=== PATIENT | male | born 1950 | race African-American/Black ===

== ENCOUNTER → 2016-12-17 | Outpatient (CLI) | payer OTHER, MEDICAID ==
[2015-07-23 14:32] VITALS: BP 154/78
[~2016-12-17] MED LIST: HYDR-971 PO; PHEN-318 PO; TAMS0.4C97 PO
--- NOTE | 2016-12-17 12:03 | RAD ---
Indication pain. AP lateral and coned view targeted to the lumbosacral junction were obtained. Note is made of a previous examination 11/14/2011. There is very minimal anterolisthesis of L5 relative to S1 and L4. There is disc space narrowing at L5-S1 with some associated vacuum disc phenomenon. Osteophytes are seen at multiple levels. Degenerative changes have progressed slightly relative to the previous exam. IMPRESSION: Degenerative changes. No acute finding seen. Degenerative changes have progressed somewhat relative to the previous exam
== END | disposition home or self-care (01) ==
LOC: RAD 09:37
PROVIDERS: ATTEND Family Medicine
DX: M54.16 Radiculopathy, lumbar region (principal)
CPT/HCPCS: 72100

== ENCOUNTER → 2017-02-19 | Outpatient (CLI) | payer OTHER, MEDICAID ==
[2017-02-19] MEDS: GADOBUTROL 7.5 MMOL/7.5 ML VIAL IV (09:59)
== END | disposition home or self-care (01) ==
LOC: KCIC MRI 08:56
DX: M51.16 Intervertebral disc disorders with radiculopathy, lumbar region (principal); M51.37 Other intervertebral disc degeneration, lumbosacral region; M43.16 Spondylolisthesis, lumbar region; M25.78 Osteophyte, vertebrae; M47.896 Other spondylosis, lumbar region; I10 Essential (primary) hypertension; F17.200 Nicotine dependence, unspecified, uncomplicated
CPT/HCPCS: 72158; A9585

== ENCOUNTER 2017-11-10 08:52 | Emergency (ER) | payer OTHER, MEDICAID ==
[~2017-11-10] VITALS: Ht 172.7 cm; Wt 59.0 kg
[~2017-11-10 08:52] MED LIST changes: +AMLO5TAB7 PO; +MIRA25TA PO; +TRIA1TAB2 PO
[2017-11-10 09:06] VITALS: BP 172/96
--- NOTE | 2017-11-10 09:14 | PHYS DOC ---
Past Medical History Past Medical History: Hypertension, Migraines Past Surgical History: Other Additional Past Surgical Histo: ABDOMINAL SURGERY Alcohol Use: None Drug Use: None Adult General Chief Complaint Chief Complaint: URINARY RETENTION HPI HPI Patient is a 67 year old male with history of hypertension, migraine headaches , urinary retention, who presents today complaining of urinary retention since yesterday at 6 PM. Patient states he had similar problem last year and had a Martin catheter placed in the Ed, he states he came to the ED and we removed the Martin catheter a couple days later. Patient states he never followed up with a urologist. Patient states the last time he was in no ED we did not do any workup for him. Is requesting workup to see what's wrong with him. Review of Systems Review of Systems Constitutional: Denies fever or chills [] Eyes: Denies change in visual acuity, redness, or eye pain [] HENT: Denies nasal congestion or sore throat [] Respiratory: Denies cough or shortness of breath [] Cardiovascular: No additional information not addressed in HPI [] GI: Denies abdominal pain, nausea, vomiting, bloody stools or diarrhea [] : Reports urinary retention. Denies dysuria or hematuria [] Musculoskeletal: Denies back pain or joint pain [] Integument: Denies rash or skin lesions [] Neurologic: Denies headache, focal weakness or sensory changes [] All other systems were reviewed and found to be within normal limits, except as documented in this note. Current Medications Current Medications Current Medications Medications (Trade) Dose Ordered Sig/[facility] Start Time Stop Time Status Last Admin Dose Admin Tamsulosin HCl (Flomax) 0.4 mg 1X ONCE 11/10/17 09:30 11/10/17 09:31 DC 11/10/17 09:34 0.4 MG Allergies Allergies Allergies Coded Allergies Type Severity Reaction Last Updated Verified No Known Drug Allergies 07/23/15 No Physical Exam Physical Exam Constitutional: Well developed, well nourished, no acute distress, non-toxic appearance. [] HENT: Normocephalic, atraumatic, bilateral external ears normal, oropharynx moist, no oral exudates, nose normal. [] Eyes: PERRLA, EOMI, conjunctiva normal, no discharge. [] Neck: Normal range of motion, no tenderness, supple, no stridor. [] Cardiovascular:Heart rate regular rhythm, no murmur [] Lungs & Thorax: Bilateral breath sounds clear to auscultation [] Abdomen: Bowel sounds normal, soft, no tenderness, no masses, no pulsatile masses. [] Bladder feels distended on palpation Skin: Warm, dry, no erythema, no rash. [] Back: No tenderness, no CVA tenderness. [] Extremities: No tenderness, no cyanosis, no clubbing, ROM intact, no edema. [] Neurologic: Alert and oriented X 3, normal motor function, normal sensory function, no focal deficits noted. [] Psychologic: Affect normal, judgement normal, mood normal. [] Current Patient Data Vital Signs Vital Signs Date Time Temp Pulse Resp B/P (MAP) Pulse Ox O2 Delivery O2 Flow Rate FiO2 11/10/17 09:06 98.0 80 18 172/96 (121) 100 Room Air 98.0 Lab Values Laboratory Tests Test 11/10/17 09:35 11/10/17 09:47 11/10/17 10:25 White Blood Count 5.5 x10^3/uL (4.0-11.0) Red Blood Count 5.25 x10^6/uL (4.30-5.70) Hemoglobin 15.1 g/dL (13.0-17.5) Hematocrit 44.6 % (39.0-53.0) Mean Corpuscular Volume 85 fL (79-100) Mean Corpuscular Hemoglobin 29 pg (25-35) Mean Corpuscular Hemoglobin Concent 34 g/dL (31-37) Red Cell Distribution Width 14.9 % (11.5-14.5) H Platelet Count 280 x10^3/uL (140-400) Neutrophils (%) (Auto) 73 % (31-73) Lymphocytes (%) (Auto) 20 % (24-48) L Monocytes (%) (Auto) 6 % (0-9) Eosinophils (%) (Auto) 1 % (0-3) Basophils (%) (Auto) 1 % (0-3) Neutrophils # (Auto) 4.0 x10^3uL (1.8-7.7) Lymphocytes # (Auto) 1.1 x10^3/uL (1.0-4.8) Monocytes # (Auto) 0.3 x10^3/uL (0.0-1.1) Eosinophils # (Auto) 0.0 x10^3/uL (0.0-0.7) Basophils # (Auto) 0.0 x10^3/uL (0.0-0.2) Urine Collection Type Unknown Urine Color Yellow Urine Clarity Clear Urine pH 6.5 Urine Specific [place] 1.020 Urine Protein Negative mg/dL (NEG-TRACE) Urine Glucose (UA) Negative mg/dL (NEG) Urine Ketones (Stick) Negative mg/dL (NEG) Urine Blood Negative (NEG) Urine Nitrite Negative (NEG) Urine Bilirubin Negative (NEG) Urine Urobilinogen Dipstick 0.2 mg/dL (0.2 mg/dL) Urine Leukocyte Esterase Negative (NEG) Urine RBC 0 /HPF (0-2) Urine WBC 0 /HPF (0-4) Urine Squamous Epithelial Cells Few /LPF Urine Bacteria 0 /HPF (0-FEW) Sodium Level 136 mmol/L (136-145) Potassium Level 3.8 mmol/L (3.5-5.1) Chloride Level 101 mmol/L (98-107) Carbon Dioxide Level 28 mmol/L (21-32) Anion Gap 7 (6-14) Blood Urea Nitrogen 11 mg/dL (8-26) Creatinine 0.9 mg/dL (0.7-1.3) Estimated GFR (Cockcroft-Gault) 101.5 BUN/Creatinine Ratio 12 (6-20) Glucose Level 125 mg/dL (70-99) H Calcium Level 9.0 mg/dL (8.5-10.1) Total Bilirubin 0.5 mg/dL (0.2-1.0) Aspartate Amino Transferase (AST) 18 U/L (15-37) Alanine Aminotransferase (ALT) 25 U/L (16-63) Alkaline Phosphatase 66 U/L (46-116) Total Protein 7.3 g/dL (6.4-8.2) Albumin 3.4 g/dL (3.4-5.0) Albumin/Globulin Ratio 0.9 (1.0-1.7) L Lipase 129 U/L (73-393) Laboratory Tests 11/10/17 09:35 Laboratory Tests 11/10/17 10:25 EKG EKG [] Radiology/Procedures Radiology/Procedures []PROCEDURE: CT ABDOMEN PELVIS WO CONTRAST CT abdomen and pelvis without contrast. HISTORY: Anuria, retention CT scan of the abdomen and pelvis was done without contrast. There are changes of chronic obstructive pulmonary disease in the lung bases. There is no infiltrate in the lung bases or pleural effusion. There is spondylolysis at L5 with slight spondylolisthesis and disc space narrowing at that level. There is a small cyst in the liver. No other liver lesion is noted. There is no calcified gallstone. Spleen and adrenal glands are normal. Pancreas is normal. There is no mass or hydronephrosis in the kidneys. There is no adenopathy or ascites. There is no bowel obstruction. There is a catheter in the bladder. The prostate is enlarged. There is no adenopathy noted. IMPRESSION: 1. Large prostate. 2. Catheter in the bladder. 3. No hydronephrosis in the kidneys. 4. Spondylolysis at L5 with mild spondylolisthesis. 6. No bowel obstruction or other acute finding. PQRS Compliance Statement: One or more of the following individualized dose reduction techniques were utilized for this examination: 1. Automated exposure control 2. Adjustment of the mA and/or kV according to patient size 3. Use of iterative reconstruction technique Electronically signed by: Tab Miller MD (11/10/2017 10:12 AM) [facility] DICTATED and SIGNED BY: TAB MILLER MD DATE: 11/10/17 1007 Course & Med Decision Making Course & Med Decision Making Pertinent Labs and Imaging studies reviewed. (See chart for details) This is a 67-year-old male patient presented to the ED today with urinary retention. Has history of urinary retention but never follows up with a urologist. He is requesting workup this time stating last time he was seen in the ED they did not do any workup for his condition. Last time he voided was 6 PM last night. Bladder is distended on physical exam. Martin was placed, 700 mL of urine output noted. Urine analysis is negative for infection, CBC CMP with no acute findings. CT noted for prostate enlargement. Patient was discharged on Flomax. Provided patient a urologist. Instructed him to follow-up with the urologist in the next 2 days. He was discharged with a Martin catheter and leg bag provided as well as night bag. Staff Physician Addendum: I was working in the ER during the course of this patient's visit. I was available for consultation as needed, but I was not directly involved in the care of this patient. Dragon Disclaimer Dragon Disclaimer This electronic medical record was generated, in whole or in part, using a voice recognition dictation system. Departure Departure Impression: Primary Impression: Urinary retention Additional Impression: Benign enlargement of prostate Disposition: HOME, SELF-CARE Condition: STABLE Referrals: MORE CAICEDO (PCP) NUNO WRIGHT MD Contact the office tomorrow morning and set up a follow-up appointment Patient Instructions: Benign Prostatic Hyperplasia, Martin Catheter Care, Adult , Urinary Retention, Acute, Male Additional Instructions: You were evaluated in the emergency room for urinary retention and noted to have enlarged prostate. You have a Martin catheter in place. Please contact the provided urologist tomorrow morning and set up a follow-up appointment with them as soon as possible. Come back to the ED at any point symptoms worsen. Scripts Tamsulosin Hcl (FLOMAX) 0.4 Mg Cap.er.24h 1 CAP PO DAILY, #90 CAP 0 Refills Prov: ANABEL MARQUES APRN 11/10/17 Problem Qualifiers Additional Impression: Benign enlargement of prostate Lower urinary tract symptom presence: symptoms present Lower urinary tract symptom detail: urinary retention Qualified Codes: N40.1 - Benign prostatic hyperplasia with lower urinary tract symptoms; R33.8 - Other retention of urine ANABEL MARQUES APRN Nov 10, 2017 09:14 LAUREN ERWIN MD Nov 10, 2017 15:45
[2017-11-10] MEDS ORDERED: TAMSULOSIN 0.4 MG CAP.ER.24H. PO ONE (09:30)
[2017-11-10 09:49] LABS: BASO % 1 % (0-3); EOS % 1 % (0-3); HEMATOCRIT 44.6 % (39.0-53.0); HEMOGLOBIN 15.1 g/dL (13.0-17.5); LYMPH # 1.1 x10^3/uL (1.0-4.8); LYMPH % 20 % (24-48); MEAN CORPUSCULAR HEMOGLOBIN 29 pg (25-35); MEAN CORPUSCULAR HGB CONC 34 g/dL (31-37); MEAN CORPUSCULAR VOLUME 85 fL (79-100); MONO # 0.3 x10^3/uL (0.0-1.1); MONO % 6 % (0-9); NEUT % 73 % (31-73); PLATELET COUNT 280 x10^3/uL (140-400); RED BLOOD COUNT 5.25 x10^6/uL (4.30-5.70); RED CELL DISTRIBUTION WIDTH 14.9 % (11.5-14.5); WHITE BLOOD COUNT 5.5 x10^3/uL (4.0-11.0)
--- NOTE | 2017-11-10 10:15 | RAD ---
CT abdomen and pelvis without contrast. HISTORY: Anuria, retention CT scan of the abdomen and pelvis was done without contrast. There are changes of chronic obstructive pulmonary disease in the lung bases. There is no infiltrate in the lung bases or pleural effusion. There is spondylolysis at L5 with slight spondylolisthesis and disc space narrowing at that level. There is a small cyst in the liver. No other liver lesion is noted. There is no calcified gallstone. Spleen and adrenal glands are normal. Pancreas is normal. There is no mass or hydronephrosis in the kidneys. There is no adenopathy or ascites. There is no bowel obstruction. There is a catheter in the bladder. The prostate is enlarged. There is no adenopathy noted. IMPRESSION: 1. Large prostate. 2. Catheter in the bladder. 3. No hydronephrosis in the kidneys. 4. Spondylolysis at L5 with mild spondylolisthesis. 6. No bowel obstruction or other acute finding. PQRS Compliance Statement: One or more of the following individualized dose reduction techniques were utilized for this examination: 1. Automated exposure control 2. Adjustment of the mA and/or kV according to patient size 3. Use of iterative reconstruction technique Electronically signed by: Tab Miller MD (11/10/2017 10:12 AM) [facility]
[2017-11-10 10:34] LABS: BACTERIA,URINE 0 /HPF (0-FEW); BILIRUBIN,URINE NEGATIVE (NEG); CLARITY,URINE CLEAR; COLOR,URINE YELLOW; NITRITE,URINE NEGATIVE (NEG); PH,URINE 6.5; PROTEIN,URINE NEGATIVE (NEG-TRACE); RBC,URINE 0 /HPF (0-2); SQUAMOUS EPITHELIAL CELL,UR FEW /LPF; UROBILINOGEN,URINE 0.2 mg/dL (0.2 mg/dL); WBC,URINE 0 /HPF (0-4)
[2017-11-10 10:54] LABS: ALBUMIN 3.4 g/dL (3.4-5.0); ALBUMIN/GLOBULIN RATIO 0.9 (1.0-1.7); CREATININE 0.9 mg/dL (0.7-1.3); GFR 101.5; POTASSIUM 3.8 mmol/L (3.5-5.1); TOTAL BILIRUBIN 0.5 mg/dL (0.2-1.0); TOTAL PROTEIN 7.3 g/dL (6.4-8.2)
[2017-11-10] MEDS ORDERED: TAMS0.4C97 PO (11:45)
== END 2017-11-10 11:36 | disposition home or self-care (01) ==
LOC: ER 08:52
DX: R33.9 Retention of urine, unspecified (principal); N40.0 Benign prostatic hyperplasia without lower urinary tract symptoms; I10 Essential (primary) hypertension; G43.909 Migraine, unspecified, not intractable, without status migrainosus; M43.16 Spondylolisthesis, lumbar region
CPT/HCPCS: 36415; 51702; 74176; 80053; 81001; 83690; 85025; 99285-25

== ENCOUNTER → 2018-11-19 | Day surgery (SDC) | payer OTHER, MEDICAID ==
[~2018-11-19] VITALS: Ht 175.3 cm; Wt 59.0 kg
[~2018-11-19] MED LIST changes: +ACETAMINOPHEN 325 MG TABLET. PO ONE; +ACETAMINOPHEN 500 MG TABLET PO ONE; +AMLO5TAB10 PO; -AMLO5TAB7 PO; +CIPROFLOXACIN 400MG PREMIX 200 ML IV PRN; +DEXAMETHASONE SOD PHOS 4 MG/ML VIAL ONE; +DULO60CA6 PO; +FINA5TAB PO; +HYDR-2765 PO; +HYDR-3164 PO; -HYDR-971 PO; +HYDROmorphone 2 MG/ML VIAL IV PRN; +IV RINGERS,LACTATED 1000ML 1,000 ML IV SCH; +LIDOCAINE 1% PF 2 ML VIAL. ID PRN; +LIDOCAINE 2% JELLY 6ML IN APPLICATOR. ONE; +LIDOCAINE 2% PF 5 ML VIAL. ONE; +MORPHINE SULFATE 2 MG/ML VIAL. IV PRN; +ONDANSETRON PF 4 MG/2 ML VIAL. IV PRN; +ONDANSETRON PF 4 MG/2 ML VIAL. ONE; +PHEN100T82 PO; +PHENYLEPHRINE in 0.9% NACL PF 1 MG/10 ML SYRINGE. IV ONE; +PROCHLORPERAZINE 10 MG/2 ML VIAL. IV PRN; +PROPOFOL 20 ML IV ONE; +SEVOFLURANE 61 TO 120 MINUTES. IH ONE; +ePHEDrine PF IN SALINE 50 MG/10 ML SYRINGE. IV ONE; +fentaNYL PF VIAL 100 MCG/2 ML VIAL IV PRN; +fentaNYL PF VIAL 100 MCG/2 ML VIAL ONE
--- NOTE | 2018-11-19 11:52 | DISCH ---
DISCHARGE INSTRUCTIONS Condition on Discharge Condition on Discharge: Stable Activity After Discharge Activity Instructions for Disc: Activity as tolerated Diet after Discharge Diet after Discharge: Regular Wound Incision Care Wound/Incision Care: Routine catheter care Contacting the DRDevon after DC Call your doctor for: Fever greater than 100 Follow-Up Follow up with: in 2 weeks Follow Up With: dc cath on saturdays am. 20ml balloon NUNO WRIGHT MD Nov 19, 2018 11:52
[2018-11-19 12:20] VITALS: BP 134/72
--- NOTE | 2018-11-19 13:23 | OP ---
DATE OF SURGERY: 11/19/2018 PREOPERATIVE DIAGNOSIS: Benign prostatic hypertrophy. POSTOPERATIVE DIAGNOSIS: Benign prostatic hypertrophy. PROCEDURE PERFORMED: Cysto with GreenLight for vaporization of the prostate. SURGEON: Elba Lipscomb MD ANESTHESIA: General. CONDITION: Stable. COMPLICATIONS: None. ESTIMATED BLOOD LOSS: 1 or 2 mL. FINDINGS: Obstructive lateral lobes. No significant median lobe. Both ureteral orifices and the verumontanum were seen at the end of the procedure, unharmed. DESCRIPTION OF PROCEDURE: The patient was taken back to the procedure room and placed under general anesthesia in a supine position per the protocol. He was prepped and draped in usual sterile fashion in dorsal lithotomy position. Timeout was performed. SCDs were attached. IV antibiotics were administered. A 23-American continuous flow scope was placed per urethra into the bladder. There was no evidence of anterior or posterior stricture disease. He had a large capacity bladder with several trabeculations. Ureteral orifice was seen away from the bladder neck. There is no significant median lobe. His lateral lobes were almost gets obstructed. A MoXy XPS laser fiber was obtained and was parked a few millimeters away from the bladder neck to avoid any bladder neck resection. The left lateral lobe was taken down first after limits of dissection was carried out both proximally and distally close to the verumontanum with care not to injure any of the above-mentioned structures. The lateral lobe was taken with continuous overlapping swipes with a MoXy XPS fiber with energy all the way to 180 h[place]. A wide open prostate fossa and the shape of a wine barrel was created, 129,000 joules were used. Pinpoint hemostasis was obtained as needed. Lidocaine jelly was used and a 20-American catheter with 20 mL balloon was placed into the bladder. Clear fluid urine return, irrigated several times with no blood clots. Tubing was attached with the leg bag. DISPOSITION: We will send home with pain medications and Pyridium. We will take out the catheter on Saturday morning. He will follow up with me in 2 weeks. ELBA LIPSCOMB MD DR: MAYELIN/elke JOB#: [id number] / [id number]
== END ==
LOC: SURG 09:21
PROVIDERS: ATTEND Urology
DX: N40.0 Benign prostatic hyperplasia without lower urinary tract symptoms (principal); I10 Essential (primary) hypertension; Z98.890 Other specified postprocedural states
CPT/HCPCS: 52648; J0171; J0744; J1100; J2001; J2370; J2405; J2704; J3010

== ENCOUNTER 2021-07-10 08:23 | Emergency (ER) | payer MEDICARE, MEDICAID ==
[~2021-07-10] VITALS: Ht 175.3 cm; Wt 65.0 kg
[~2021-07-10 08:23] MED LIST changes: -ACETAMINOPHEN 325 MG TABLET. PO ONE; -ACETAMINOPHEN 500 MG TABLET PO ONE; +AMLO-186 PO; -AMLO5TAB10 PO; -CIPROFLOXACIN 400MG PREMIX 200 ML IV PRN; -DEXAMETHASONE SOD PHOS 4 MG/ML VIAL ONE; -DULO60CA6 PO; +DULO60CA7 PO; -HYDROmorphone 2 MG/ML VIAL IV PRN; -IV RINGERS,LACTATED 1000ML 1,000 ML IV SCH; -LIDOCAINE 1% PF 2 ML VIAL. ID PRN; -LIDOCAINE 2% JELLY 6ML IN APPLICATOR. ONE; -LIDOCAINE 2% PF 5 ML VIAL. ONE; -MORPHINE SULFATE 2 MG/ML VIAL. IV PRN; -ONDANSETRON PF 4 MG/2 ML VIAL. IV PRN; -ONDANSETRON PF 4 MG/2 ML VIAL. ONE; -PHENYLEPHRINE in 0.9% NACL PF 1 MG/10 ML SYRINGE. IV ONE; -PROCHLORPERAZINE 10 MG/2 ML VIAL. IV PRN; -PROPOFOL 20 ML IV ONE; -SEVOFLURANE 61 TO 120 MINUTES. IH ONE; -ePHEDrine PF IN SALINE 50 MG/10 ML SYRINGE. IV ONE; -fentaNYL PF VIAL 100 MCG/2 ML VIAL IV PRN; -fentaNYL PF VIAL 100 MCG/2 ML VIAL ONE
[2021-07-10 09:04] LABS: BASO % 1 % (0-3); EOS # 0.2 x10^3/uL (0.0-0.7); EOS % 5 % (0-3); HEMATOCRIT 40.9 % (39.0-53.0); HEMOGLOBIN 13.4 g/dL (13.0-17.5); LYMPH # 2.1 x10^3/uL (1.0-4.8); LYMPH % 38 % (24-48); MEAN CORPUSCULAR HEMOGLOBIN 28 pg (25-35); MEAN CORPUSCULAR HGB CONC 33 g/dL (31-37); MEAN CORPUSCULAR VOLUME 86 fL (79-100); MONO # 0.6 x10^3/uL (0.0-1.1); MONO % 12 % (0-9); NEUT # 2.4 x10^3/uL (1.8-7.7); NEUT % 45 % (31-73); PLATELET COUNT 284 x10^3/uL (140-400); RED BLOOD COUNT 4.76 x10^6/uL (4.30-5.70); RED CELL DISTRIBUTION WIDTH 15.1 % (11.5-14.5); WHITE BLOOD COUNT 5.4 x10^3/uL (4.0-11.0)
[2021-07-10 09:12] LABS: CREATININE 1.2 mg/dL (0.7-1.3); GFR 72.2; POTASSIUM 3.1 mmol/L (3.5-5.1)
[2021-07-10 09:15] LABS: PROTHROMBIN TIME PATIENT 12.4 SEC (11.7-14.0)
[2021-07-10 09:18] LABS: ALBUMIN 3.6 g/dL (3.4-5.0); ALBUMIN/GLOBULIN RATIO 0.9 (1.0-1.7); TOTAL BILIRUBIN 0.5 mg/dL (0.2-1.0); TOTAL PROTEIN 7.5 g/dL (6.4-8.2)
[2021-07-10 09:30] LABS: FECAL OB PT POSITIVE (NEG)
[2021-07-10] MEDS ORDERED: MORPHINE SULFATE 4 MG/ML INJ. ONE (09:37)
[2021-07-10] MEDS ORDERED: MORPHINE SULFATE 4 MG/ML INJ. IV PRN (09:45)
--- NOTE | 2021-07-10 09:49 | PHYS DOC ---
Past Medical History Past Medical History: Hypertension Additional Past Medical Histor: BACK PAIN FROM DISC PROBLEM Past Surgical History: Other Additional Past Surgical Histo: ABDOMINAL SURGERY - UNKNOWN Smoking Status: Former Smoker Alcohol Use: None Drug Use: None General Adult EDM: Chief Complaint: BLOODY STOOL HPI: HPI: Patient is a 70 year old male who presents to the emergency department today with concerns for blood in his stools. Patient states that he had a bowel movement this morning and noticed a streak of blood on the fecal matter. He also has some blood when he wipes. He states this was the first and only time he has had blood in his stools. He does not take any antiplatelet or anticoagulant medications. He denies any chest pain or shortness of breath. He denies any feelings of syncope or near syncope. He denies any other issues with bleeding. Review of Systems: Review of Systems: Constitutional: Denies fever or chills. [] Eyes: Denies change in visual acuity. [] HENT: Denies nasal congestion or sore throat. [] Respiratory: Denies cough or shortness of breath. [] Cardiovascular: Denies chest pain or edema. [] GI: Denies abdominal pain, nausea, vomiting, diarrhea. [] : Denies dysuria. [] Musculoskeletal: Denies joint pain. [] Integument: Denies rash. [] Neurologic: Denies headache, focal weakness or sensory changes. [] Endocrine: Denies polyuria or polydipsia. [] Lymphatic: Denies swollen glands. [] Psychiatric: Denies depression or anxiety. [] Heart Score: C/O Chest Pain: No Family History: Family History: Noncontributory Allergies: Allergies: Allergies Coded Allergies Type Severity Reaction Last Updated Verified No Known Drug Allergies 11/19/18 No Physical Exam: PE: Constitutional: Well developed, well nourished, no acute distress, non-toxic appearance. [] HENT: Normocephalic, atraumatic, bilateral external ears normal, oropharynx moist, no oral exudates, nose normal. [] Eyes: PERRLA, EOMI, conjunctiva normal, no discharge. [] Neck: Normal range of motion, no tenderness, supple, no stridor. [] Cardiovascular:Heart rate regular rhythm, no murmur [] Lungs & Thorax: Bilateral breath sounds clear to auscultation [] Abdomen: Bowel sounds normal, soft, no tenderness, no masses, no pulsatile masses. Rectal: No hemorrhoids or masses. No gross blood. Skin: Warm, dry, no erythema, no rash. [] Back: No tenderness, no CVA tenderness. [] Extremities: No tenderness, no cyanosis, no clubbing, ROM intact, no edema. [] Neurologic: Alert and oriented X 3, normal motor function, normal sensory function, no focal deficits noted. [] Psychologic: Affect normal, judgement normal, mood normal. [] Current Patient Data: Labs: Laboratory Tests Test 07/10/21 08:42 White Blood Count 5.4 x10^3/uL (4.0-11.0) Red Blood Count 4.76 x10^6/uL (4.30-5.70) Hemoglobin 13.4 g/dL (13.0-17.5) Hematocrit 40.9 % (39.0-53.0) Mean Corpuscular Volume 86 fL (79-100) Mean Corpuscular Hemoglobin 28 pg (25-35) Mean Corpuscular Hemoglobin Concent 33 g/dL (31-37) Red Cell Distribution Width 15.1 % (11.5-14.5) H Platelet Count 284 x10^3/uL (140-400) Neutrophils (%) (Auto) 45 % (31-73) Lymphocytes (%) (Auto) 38 % (24-48) Monocytes (%) (Auto) 12 % (0-9) H Eosinophils (%) (Auto) 5 % (0-3) H Basophils (%) (Auto) 1 % (0-3) Neutrophils # (Auto) 2.4 x10^3/uL (1.8-7.7) Lymphocytes # (Auto) 2.1 x10^3/uL (1.0-4.8) Monocytes # (Auto) 0.6 x10^3/uL (0.0-1.1) Eosinophils # (Auto) 0.2 x10^3/uL (0.0-0.7) Basophils # (Auto) 0.0 x10^3/uL (0.0-0.2) Prothrombin Time 12.4 SEC (11.7-14.0) Prothrombin Time INR 1.0 (0.8-1.1) Activated Partial Thromboplast Time 31 SEC (24-38) Stool Occult Blood Positive (NEG) Sodium Level 142 mmol/L (136-145) Potassium Level 3.1 mmol/L (3.5-5.1) L Chloride Level 104 mmol/L (98-107) Carbon Dioxide Level 29 mmol/L (21-32) Anion Gap 9 (6-14) Blood Urea Nitrogen 13 mg/dL (8-26) Creatinine 1.2 mg/dL (0.7-1.3) Estimated GFR (Cockcroft-Gault) 72.2 BUN/Creatinine Ratio 11 (6-20) Glucose Level 98 mg/dL (70-99) Calcium Level 9.0 mg/dL (8.5-10.1) Total Bilirubin 0.5 mg/dL (0.2-1.0) Aspartate Amino Transferase (AST) 21 U/L (15-37) Alanine Aminotransferase (ALT) 23 U/L (16-63) Alkaline Phosphatase 69 U/L (46-116) Total Protein 7.5 g/dL (6.4-8.2) Albumin 3.6 g/dL (3.4-5.0) Albumin/Globulin Ratio 0.9 (1.0-1.7) L Laboratory Tests 07/10/21 08:42 Laboratory Tests 07/10/21 08:42 Vital Signs: Vital Signs Date Time Temp Pulse Resp B/P (MAP) Pulse Ox O2 Delivery O2 Flow Rate FiO2 07/10/21 08:40 97.6 59 18 180/85 (116) 100 Room Air 97.6 EKG: EKG: EKG shows normal sinus rhythm with a rate of 56. Intervals are normal. There is a leftward axis deviation. Nonspecific T wave abnormalities. No significant changes from previous. No evidence of any acute ischemia or infarction. Radiology/Procedures: Radiology/Procedures: [] Impression: GI Bleed Course & Med Decision Making: Course & Med Decision Making Patient remained hemodynamically stable while in emergency department. He evaluated the bedside with a physical exam. Hematocrit is 40 here in emergency department. He had no gross blood on exam. He did have occult blood feel rectal exam. The remainder of his work-up was unremarkable. Given the totality of his work-up I think we can safely discharge the patient home and have him follow-up with his PCP. He has been given return precautions should he have any further bleeding, syncope, near syncope, chest pain, shortness of breath or abdominal he should return immediately to the emergency department. Dragon Disclaimer: Dragon Disclaimer: This electronic medical record was generated, in whole or in part, using a voice recognition dictation system. Departure Departure Impression: Primary Impression: GI bleed Disposition: HOME / SELF CARE / HOMELESS Condition: IMPROVED Referrals: MORE CAICEDO (PCP) Patient Instructions: Rectal Bleeding, [id number] OMAR SKAGGS MD July 10, 2021 09:49
[2021-07-10 10:53] VITALS: BP 140/77
--- NOTE | 2021-07-10 15:11 | EKG ---
[facility] [address] [place] [address] Test Date: 2021-07-10 Test Time: 09:50:48 Pat Name: MARCOS DUBOSE Department: Room: Gender: M Ui Developer: : 1950 Requested By: OMAR SKAGGS Order Number: [id number] Reading MD: Jack Oneal MD Measurements Intervals [place] Rate: 56 P: 71 MO: 168 QRS: 0 QRSD: 84 T: 59 QT: 434 QTc: 421 Interpretive Statements SINUS RHYTHM Electronically Signed On 07-11-2021 11:08:09 CDT by Jack Oneal MD
== END 2021-07-10 10:58 | disposition home or self-care (01) ==
LOC: EDBD 08:23 → ER 08:23
DX: K92.2 Gastrointestinal hemorrhage, unspecified (principal); I10 Essential (primary) hypertension; Z87.891 Personal history of nicotine dependence
CPT/HCPCS: 36415; 80053; 82274; 85025; 85610; 85730; 86850; 86900; 86901; 93005; 99284